=== PATIENT | female | born 1940 | race Caucasian/White ===

== ENCOUNTER 2023-12-21 19:18 | Emergency (ER) | payer MEDICARE, OTHER, SELFPAY ==
[2023-12-21] VITALS (7 sets, daily range): BP systolic 149; BP diastolic 73; PULSE 85–98; RESP 18; TEMP 36.9; O2SAT 93–98; BMI 24.7
--- NOTE | 2023-12-21 19:26 | DI.RAD.S_ITS ---
PROCEDURE: XR SHOULDER LT MIN 2V INDICATIONS: fall TECHNIQUE: 2 views of the shoulder were acquired. COMPARISON: [facility], CR, XR HUMERUS LT 2V, 12/21/2023, 19:46. FINDINGS: Bones: No clearly evident fractures or dislocations by these two views but the external rotation view on humerus plain films same day shows a greater tuberosity fracture, minimally displaced.. No suspicious bony lesions. Visualized ribs appear intact. Soft tissues: No suspicious soft tissue calcifications. IMPRESSION: The current study does not show a definite fracture but the concurrent humerus plain films show what appears to be a minimally displaced fracture at the greater tuberosity of the left shoulder. Dictated by: Mele Lang M.D. on 12/21/2023 at 20:17 Approved by: Mele Lang M.D. on 12/21/2023 at 20:18
--- NOTE | 2023-12-21 19:26 | DI.RAD.S_ITS ---
PROCEDURE: XR HUMERUS LT 2V INDICATIONS: fall TECHNIQUE: 3 views of the humerus were acquired. COMPARISON: [facility], CR, XR SHOULDER LT MIN 2V, 12/21/2023, 19:46. FINDINGS: Bones: No dislocations. No suspicious bony lesions. There appears to be a minimally displaced fracture involving the greater tuberosity at the left humeral head. Soft tissues: No suspicious soft tissue calcifications. IMPRESSION: Apparent greater tuberosity fracture, minimally displaced, best seen on the external rotation view. Dictated by: Mele Lang M.D. on 12/21/2023 at 20:14 Approved by: Mele Lang M.D. on 12/21/2023 at 20:17
--- NOTE | 2023-12-21 21:39 | ED_ITS ---
HPI - Fall General Chief Complaint: Fall Stated Complaint: Fall, Left shoulder pain Time Seen by Provider: 12/21/23 19:56 Source: patient and EMS Mode of arrival: EMS History of Present Illness HPI Narrative: 83-year-old woman with a history of hypertension stood up today tripped over her dog fell and landed on her left shoulder and is having significant left shoulder pain. She was transported by medics and given fentanyl EN route. She does not complain of additional areas of pain. She has not anticoagulated. This was not a syncopal episode, she did not hit her head. Related Data Allergies Allergy/AdvReac Type Severity Reaction Status Date / Time No Known Drug Allergies Allergy Verified 12/21/23 19:28 Review of Systems Review of Systems Narrative: Pertinent positive and negative findings as per [facility] Patient History Medical History (Updated 12/21/23 @ 21:57 by Martha Rizo MD) Hypertension Exam Initial Vital Signs Initial Vital Signs: Vital Signs Pulse Rate 87 12/21/23 19:20 Blood Pressure 149/73 H 12/21/23 19:20 Pulse Oximetry 97 12/21/23 19:20 General: Healthy appearing, in moderate amount of pain. Able to participate completely with history and physical HEENT: Moist mucous membranes, normal sclera with reactive pupils, Neck: No cervical spine tenderness Respiratory: Lungs are clear to auscultation, no wheezing no rales no rhonchi. Full and symmetrical air movement Cardiac: Regular rate and rhythm no murmurs no bruits Abdomen: Soft, nontender, good bowel tones, no flank pain Skin: Warm and dry, no rashes Neurologic: Grossly neurologically intact with no obvious asymmetries or abnormalities Extremities: Left upper humerus significantly tender no bruising yet but swelling is noted. With the humerus stabilized she has no tenderness at the elbow or wrist. Neurovascularly intact. No evidence of additional trauma to other extremities or buttock Psych: Cooperative, appropriate insight and affect Course Orders Ordered: ED Orders 12/21/23 19:26 XR humerus LT 2V Stat XR shoulder LT min 2V Stat Discontinued Medications Hydrocodone Bitart/Acetaminophen (Hydrocodone/Acet 5/325 Tablet) 1 tab PO NOW ONE Stop: 12/21/23 21:49 Last Admin: 12/21/23 22:00 Dose: 1 tab Documented By: TILA Hydrocodone Bitart/Acetaminophen (Hydrocodone/Acet 5/325 Prepack) 1 bottle MISC DIRECTED ONE Stop: 12/21/23 21:49 Last Admin: 12/21/23 22:00 Dose: 1 bottle Documented By: TILA Ketorolac Tromethamine (Ketorolac 30 Mg/Ml Vial) 15 mg IV NOW ONE Stop: 12/21/23 21:49 Last Admin: 12/21/23 22:00 Dose: 15 mg Documented By: TIAL Vital Signs Vital signs: Vital Signs - 8 hr 12/21/23 19:20 12/21/23 19:20 12/21/23 19:28 Temperature 98.4 F Pulse Rate 87 88 Respiratory Rate 18 Blood Pressure 149/73 H 149/73 H Pulse Oximetry 97 95 Oxygen Delivery Method Room Air 12/21/23 19:30 12/21/23 20:00 12/21/23 20:30 Temperature Pulse Rate 85 93 H 90 Respiratory Rate 18 18 Blood Pressure Pulse Oximetry 96 98 95 Oxygen Delivery Method 12/21/23 21:00 12/21/23 21:30 Temperature Pulse Rate 98 H 96 H Respiratory Rate 18 Blood Pressure Pulse Oximetry 93 95 Oxygen Delivery Method MDM - Fall MDM Narrative Medical decision making narrative: CC: Fall with left arm pain Complicating co-morbidities: Hypertension Data collected from: patient, , son, [id number] Differential considered: Fracture, sprain, ligamentous injury Exam documented above, pertinent findings include: Tenderness of the proximal left left upper extremity, no clavicle tenderness. No additional trauma appreciated Imaging studies independently reviewed: Greater tuberosity fracture of the left humerus minimally displaced. No fractures or dislocations appreciated Procedures: Sling is placed for the left arm. She is neurovascularly intact pre and post placement. Post placement pain is reduced and patient reports that the arm does feel more stable. Treatments: IV Toradol, p.o. [place], she is placed in a sling Discussion: 83-year-old woman with mechanical fall landing on her left arm with a greater tuberosity fracture without dislocation or clavicular injury on the left side. No other trauma appreciated. We talked about anticipated course of recovery, pain control, use of narcotics in the setting and importance of using the sling to immobilize the arm as much as possible and follow up with orthopedic physicians for definitive treatment of the upper arm fracture. Questions are answered and she is safe for discharge Discharge Plan Departure Patient Disposition: Home Clinical Impression: Fall Qualifiers: Encounter type: initial encounter Qualified Code(s): W19.XXXA - Unspecified f all, initial encounter Fracture, humerus closed Qualifiers: Encounter type: initial encounter Humerus Location: proximal Fracture morphology: other fracture Fracture alignment: nondisplaced Laterality: left Qualified Code(s): S42.295A - Other nondisplaced fracture of upper end of left humerus, initial encounter for closed fracture Activity Restrictions/Additional Instructions: Thank you for coming in today With your fall, you did break the upper part of your arm. It does not appear that you dislocated your shoulder and there is no injury to your elbow. With the upper arm fracture, it is going to heal nicely, treatment is going to be a sling and immobilization. Using ice we will be helpful to the area. For moderate pain control use 400 mg of ibuprofen (2 [id number] pills) and 1 Tylenol every 6 hours . For severe pain control you can use 400 mg of ibuprofen and 1 hydrocodone. Hydrocodone is a narcotic, can cause constipation and can be addicting. Please use it appropriately You will need to follow up for definitive fracture treatment with [facility]. Please call on Saturday to schedule an appointment with them. The office phone number is [phone]. Let him know that you are in the emergency department and you have an upper arm fracture on the left side If you find that you are getting worse or develop any new symptoms, please feel free to return to the emergency department for further evaluation. Referrals: Chapito Lyons PA-C [Primary Care Provider] - Stand Alone Forms: Patient Portal/API
[2023-12-21] MEDS: KETOROLAC 30 MG/ML VIAL 15 MG IV (22:00)
[2023-12-21] MEDS: HYDROCODONE/ACET 5/325 TABLET 1 TAB PO (22:00)
[2023-12-21] MEDS: HYDROCODONE/ACET 5/325 PREPACK 1 BOTTLE MISC (22:00)
== END 2023-12-21 22:30 | disposition home or self-care (01) ==
PROVIDERS: Emergency Provider Emergency Medicine; PCP Student in an Organized Health Care Education/Training Program
DX: S42.295A Other nondisplaced fracture of upper end of left humerus, initial encounter for closed fracture (principal); W01.0XXA Fall on same level from slipping, tripping and stumbling without subsequent striking against object, initial encounter
CPT/HCPCS: 73030; 73060; 96374; 99284; J1885